=== PATIENT | female | born 1965 | race Caucasian/White ===

== ENCOUNTER 2018-02-17 19:10 | Emergency (ER) | payer SELFPAY ==
[~2018-02-17] VITALS: Ht 152.4 cm; Wt 105.2 kg
[2018-02-17 19:28] VITALS: BP 114/68
[2018-02-17] MEDS: ONDANSETRON 4 MG ODT PO ONE (20:15)
[2018-02-17] MEDS: KETOROLAC 60 MG/2 ML VIAL IM ONE (21:34)
[2018-02-17 21:53] VITALS: BP 136/74
== END 2018-02-17 21:53 | disposition home or self-care (01) ==
LOC: MED 19:10
DX: R10.13 Epigastric pain (principal); R11.2 Nausea with vomiting, unspecified; R19.7 Diarrhea, unspecified
CPT/HCPCS: 81002; 81025; 96372; 99283; J1885; Q0162